=== PATIENT | male | born 1945 | race Caucasian/White ===

== ENCOUNTER 2019-02-07 19:05 | Emergency (ER) ==
[2019-02-07 19:20] VITALS: BP 144/88; TEMP 98.2; BMI 25.8
--- NOTE | 2019-02-07 19:35 | ED.PDOC ---
General ED Provider: Dr. AGUEDA BARNES Chief Complaint: Ankle Pain/Injury Stated Complaint: 74 y old on slope,mud,slipped and r ankle " poped'.Altered shape at the ankle levelmswelling,oain,Carrero sign not tested due to the paion.nsertion of Achilles nontender.Tendon shows no gap on palpation. Time Seen by Physician: 19:20 Mode of Arrival: Wheelchair Information Source: Patient, Family Exam Limitations: No limitations Primary Care Provider: NATHAN MCKEON Nursing and Triage Documentation Reviewed and Agree: Yes Does patient meet sepsis criteria?: No System Inflammatory Response Syndrome: Not Applicable Sepsis Protocol: For patient's 13 years and over: Temp is 96.8 and below OR 101 and greater Pulse >90 BPM Resp >20/minute Acutely Altered Mental Status Are patient's symptoms suggestive of a new infection, such as: -Pneumonia -Skin, Soft Tissue -Endocarditis -UTI -Bone, Joint Infection -Implantable Device -Acute Abdominal Infection -Wound Infection -Meningitis -Blood Stream Catheter Infection -Unknown Musculoskeletal Complaint Exam - Ankle/Foot Complaint/Exam Mechanism of Injury: Reports: Trauma Onset/Duration: today sliped on slope-mud and fell Symptoms Are: Reports: Still present Onset of Pain: Reports: Immediate Initial Severity: Moderate Current Severity: Moderate Location: Reports: Discrete Character: Reports: Aching, Stiffness Alleviating: Reports: Rest, Position, Cold Aggravating: Reports: Movement Associated Signs and Symptoms: Reports: Swelling, Bruising Gout Risk Factors: Reports: >40 years old Related Surgical History: Reports: None Lower Extremity Findings: Present: Swelling, Abnormal contour, Tenderness, Limited range of motion Achilles Tendon Abnormality: No Tenderness: Present: Medial malleolus, Lateral malleolus Limited Range of Motion: Present: Inversion, Dorsiflexion, Plantarflexion Differential Diagnosis: Contusion, Dislocation, Closed Fracture, Sprain, Strain Review of Systems - Review Of Systems Constitutional: Reports: No symptoms Eyes: Reports: No symptoms Ears, Nose, Mouth, Throat: Reports: No symptoms Respiratory: Reports: No symptoms Cardiac: Reports: No symptoms GI: Reports: No symptoms : Reports: No symptoms Musculoskeletal: Reports: No symptoms Skin: Reports: Bruising Neurological: Reports: No symptoms Endocrine: Reports: No symptoms Hematologic/Lymphatic: Reports: No symptoms All Other Systems: Reviewed and Negative Past Medical History - Past Medical History Previously Healthy: Yes Endocrine: Reports: None Cardiovascular: Reports: Hypertension Respiratory: Reports: None Hematological: Reports: None Gastrointestinal: Reports: None Genitourinary: Reports: None Neuro/Psych: Reports: None Musculoskeletal: Reports: None Cancer: Reports: None - Surgical History General Surgical History: Reports: None - Family History Family History: Reports: None - Social History Smoking Status: Current every day smoker, Former smoker Smoking Cessation Counseling Time: > 3 min - 10 min Hx Substance Use: No Alcohol Screening: Occasionally - Immunizations Tetanus Shot up to Date: No Physical Exam - Physical Exam Appearance: Well-appearing Ill-appearing: None Pain Distress: Moderate Eyes: ERICA, EOMI, Conjunctiva clear ENT: Ears normal, Nose normal, Oropharynx normal Neck: Supple Respiratory: Airway patent, Breath sounds clear Cardiovascular: RRR, Pulses normal GI/: Soft, Nontender Musculoskeletal: Limited ROM, Limited strength, Edema Skin: Warm, Dry Neurological: Sensation intact, Alert, Oriented Psychiatric: Affect appropriate Critical Care Note - Critical Care Note Total Time (mins): 0 Course - Course Orders, Labs, Meds: Orders Category Date Time Status CRUTCHES [ED CRUTCHES] .ONCE EMERGENCY 02/07/19 20:11 Active Splint [ED SPLINT APPLICATION] .ONCE EMERGENCY 02/07/19 20:09 Active ANKLE, RIGHT MIN 3 VIEWS Stat RADS 02/07/19 19:35 Taken TIBIA/FIBULA, RIGHT 2 VIEW Stat RADS 02/07/19 19:35 Taken Vital Signs: Temp Pulse Resp BP Pulse Ox 02/07/19 19:05 98.2 F 68 20 144/88 H 96 Departure - Departure Time of Disposition: 20:30 Disposition: HOME SELF-CARE Discharge Problem: Ankle fracture Instructions: Ankle Fracture (ED) Condition: Good Pt referred to PMD for follow-up: Yes (referral to orthopedic spec.) IPMP verified?: No Additional Instructions: Ibuprofen OTC 600 mg qid x 3 days. Allergies/Adverse Reactions: Allergies No Known Allergies Allergy (Unverified 02/07/19 19:34) Disposition Discussed With: Patient, Family
--- NOTE | 2019-02-07 20:57 | DI ---
EXAM: Two views of the right tibia-fibula HISTORY: Fall, pain TECHNIQUE: AP lateral views of the right tibia-fibula were obtained. FINDINGS: There is a mildly displaced oblique fracture of the distal fibula. There is additional co rtical irregularity seen along the medial cortex of the distal tibia. The posterior cortex of the di stal tibia appears intact. IMPRESSION: Acute bimalleolar fractures of the right ankle.
--- NOTE | 2019-02-07 20:57 | DI ---
EXAM: Three views of the right ankle HISTORY: Fall, pain lateral right ankle TECHNIQUE: AP lateral, oblique views of the right ankle were obtained. FINDINGS: There is a mildly displaced oblique fracture of the distal fibula. There is additional co rtical irregularity seen along the medial cortex of the distal tibia. The findings are best seen on the mortise view. IMPRESSION: Bilmalleolar fractures of the right ankle.
== END 2019-02-07 20:58 | disposition home or self-care (01) ==
LOC: ED 19:05
DX: M25.571 Pain in right ankle and joints of right foot (principal); M25.471 Effusion, right ankle; Z72.0 Tobacco use; S82.891A Other fracture of right lower leg, initial encounter for closed fracture
CPT/HCPCS: 99283